=== PATIENT | female | born 1975 | race Caucasian/White ===

== ENCOUNTER 2020-05-18 07:17 | Day surgery (SDC) | payer MEDICAID ==
[2020-05-15 14:28] LABS: BASOPHILS # (AUTO) 0.1 X10'3 (0-0.2); EOSINOPHILS # (AUTO) 0.1 X10'3 (0-0.9); EOSINOPHILS % (AUTO) 0.9 % (0-6); LYMPHOCYTES # (AUTO) 2.9 X10'3 (1.1-4.8); LYMPHOCYTES % (AUTO) 36.5 % (21-51); MEAN CORPUSCULAR HEMOGLOBIN 31.5 PG (27.0-31.0); MEAN CORPUSCULAR HGB CONC 33.6 g/dL (33.0-36.5); MEAN CORPUSCULAR VOLUME 93.7 FL (78-98); MONOCYTES # (AUTO) 0.6 X10'3 (0-0.9); MONOCYTES % (AUTO) 7.4 % (2-12); NEUTROPHILS # (AUTO) 4.2 X10'3 (1.8-7.7); NEUTROPHILS % (AUTO) 54.2 % (42-75); PRE OP HEMATOCRIT 39.3 % (35.0-45.0); PRE OP HEMOGLOBIN 13.2 g/dL (12.0-16.0); PRE OP PLATELET COUNT 342 X10'3 (140-440); RED CELL DISTRIBUTION WIDTH 12.8 % (11.5-14.5)
[2020-05-15 14:36] LABS: ALBUMIN 3.9 G/DL (3.4-5.0); ALBUMIN/GLOBULIN RATIO 1.1 (1.1-1.5); ALKALINE PHOSPHATASE 59 IU/L (46-116); BLOOD UREA NITROGEN 8 MG/DL (7-18); BUN/CREATININE RATIO 9.4 (6.6-38.0); CALCIUM 9.1 MG/DL (8.5-10.1); CHLORIDE 104 MMOL/L (99-107); CREATININE 0.85 MG/DL (0.40-0.90); PRE OP ALT 27 U/L (30-65); PRE OP ANION GAP 8 (8-16); PRE OP AST 15 U/L (10-37); PRE OP BILIRUB, TOTAL 0.3 MG/DL (0.0-1.0); PRE OP GLUCOSE 85 MG/DL (70-104); PRE OP SODIUM 138 MMOL/L (135-145); TOTAL CARBON DIOXIDE 26.2 MMOL/L (24-32); TOTAL PROTEIN 7.4 G/DL (6.4-8.2); eGFR 73 ML/MIN
[2020-05-15 15:01] LABS: HCG SERUM QL NEGATIVE
[~2020-05-18] VITALS: Ht 175.3 cm; Wt 104.3 kg
[2020-05-18] VITALS (10 sets, daily range): BP systolic 121–132; BP diastolic 75–94
[~2020-05-18 07:17] MED LIST: AMIT-189 PO; ARIP2TAB37 PO; BUSP10TA11 PO; GABA-530 PO; LAMO25TA6 PO; LITH300T3 PO; LORA-269 PO; METH-360 PO; ZOLP5TAB2 PO; famotidine 20mg tablet PO ONE; ringers solution, lacted 1,000 ML IV SCH
[2020-05-18] MEDS ORDERED: ringers solution, lacted 1,000 ML IV SCH (07:26)
[2020-05-18] MEDS ORDERED: acetaminophen 1,000mg/100ml IV 100 ML IV PRN (07:30)
[2020-05-18] MEDS ORDERED: ondansetron/PF 4mg/2ml inj IV PRN (07:30)
[2020-05-18] MEDS ORDERED: ketorolac trometh. 30mg/ml inj. IV ONE (07:30)
[2020-05-18] MEDS ORDERED: morphine 2 MG/ML inj. syringe IV PRN (07:30)
[2020-05-18] MEDS ORDERED: morphine 4 MG/ML inj SYRINge IV PRN (07:30)
[2020-05-18] MEDS ORDERED: proCHLORperazine 10 MG/2 ml inj IV PRN (07:30)
[2020-05-18] MEDS ORDERED: meperidine/PF 25mg/ml syringe IV PRN ×3 (07:30)
--- NOTE | 2020-05-18 09:40 | NUR ---
ADMITTED TO PACU FROM OR ACCOMPANIED BY ANESTHESIA. INTIAL PHYSICAL ASSESSMENT DONE AND RECORDED. REPORT RECEIVED FROM ANESTHESIA.
[2020-05-18] MEDS ORDERED: fentaNYL/PF 50MCG/1 ML 2ML syringe ONE (10:02)
[2020-05-18] MEDS ORDERED: sevoflurane 250ml liquid IH ONE (10:03)
[2020-05-18] MEDS ORDERED: midazolam 2 mg/2 ml injection ONE (10:15)
[2020-05-18] MEDS ORDERED: propofol inj 20 ML IV ONE (10:16)
[2020-05-18] MEDS ORDERED: LIDOcaine 2% (20mg/ml) 5ml vial ONE (10:16)
[2020-05-18] MEDS ORDERED: rocuronium 10mg/ml inj IV ONE (10:16)
[2020-05-18] MEDS ORDERED: neostigmine methylsulfate 1 MG/ML 10ml vial ONE ×2 (10:17→10:22)
[2020-05-18] MEDS ORDERED: ondansetron/PF 4mg/2ml inj ONE (10:17)
[2020-05-18] MEDS ORDERED: glycopyrrolate 0.2mg/ml inj ONE (10:17)
[2020-05-18] MEDS ORDERED: dexamethasone sod phosphate 4mg/ml inj. ONE (10:17)
--- NOTE | 2020-05-18 11:15 | NUR ---
DISCHARGE CRITERIA MET, DISCHARGE INSTRUCTIONS GIVEN, DEMONSTRATES VERBAL UNDERSTANDING. DISCHARGED HOME IN GOOD CONDITION.
[2020-05-18] MEDS ORDERED: ibuprofen 200mg tablet PO ONE (11:35)
== END 2020-05-18 11:15 | disposition home or self-care (01) ==
LOC: PAS 07:17
PROVIDERS: ATTEND Obstetrics & Gynecology
DX: Z30.2 Encounter for sterilization (principal); F31.9 Bipolar disorder, unspecified; F41.8 Other specified anxiety disorders; Z79.899 Other long term (current) drug therapy; Z88.8 Allergy status to other drugs, medicaments and biological substances; Z98.890 Other specified postprocedural states; Z20.828 Contact with and (suspected) exposure to other viral communicable diseases
CPT/HCPCS: 36415; 58670; 80053; 82948; 84703; 85025; 87635; J1100; J2001; J2250; J2405; J2704; J2710; J3010; J7120; A4618; A7000; J3490